=== PATIENT | male | born 1960 | race African-American/Black ===

== ENCOUNTER 2021-10-16 10:21 | Observation (INO) ==
[2021-10-16 10:44] LABS: Basophils % 0.4 % (0.0-0.8); Eosinophils # 0.2 10*3/uL (0.0-0.87); Eosinophils % 3.4 % (0.00-10.9); Hematocrit 38.8 VOL% (42.0-52.0); Hemoglobin 13.1 GM/DL (14.0-18.0); Immature Granulocytes % 0.4 %; Immature Granulocytes Absolute 0.02 #; Lymphocytes # 1.8 10*3/uL (1.4-4.0); Lymphocytes % 38.5 % (21.2-54.2); Mean Corpuscular HGB Conc 33.8 GM/DL (32-36); Mean Corpuscular Volume 85.8 FL (87-102); Mean Platelet Volume 9.9 FL (9.6-12.0); Monocytes # 0.3 10*3/uL (0.11-0.8); Monocytes % 6.9 % (1.7-12.7); Neutrophils % 50.4 % (38.7-73.9); Platelet Count 279 T/CUMM (130-400); Red Blood Count 4.52 MC/CUMM (3.8-5.5); Red Cell Distribution Width 12.4 % (9.3-17.3); White Blood Count 4.8 T/CUMM (4-12)
[2021-10-16] MEDS ORDERED: ALUM/MAG/SIMETH/LIDO VISC 1:1 30 ML BOTTLE PO STA (11:02)
[2021-10-16] MEDS ORDERED: ASPIRIN 325 MG TABLET PO STA (11:02)
[2021-10-16 11:18] LABS: Alanine Aminotransferase 15 U/L (16-61); Albumin 2.6 G/DL (3.4-5.0); Alkaline Phosphatase 104 U/L (45-117); Aspartate Amino Transferase 19 U/L (0-37); Bilirubin,Total < 0.39 MG/DL (0.20-1.00); Blood Urea Nitrogen 15 MG/DL (7-18); Calcium 8.8 MG/DL (8.5-10.1); Carbon Dioxide 29 MMOL/L (21-32); Chloride 100 MMOL/L (98-107); Glucose 383 MG/DL (74-106); Osmolality,Calculated 284.2 MOS/KG (273-304); Potassium 4.2 MMOL/L (3.5-5.1); Sodium 134 MMOL/L (136-145); Total Protein 6.7 G/DL (6.4-8.2)
[2021-10-16] MEDS ORDERED: METOPROLOL TARTRATE 5 MG/5 ML VIAL IV STA (12:40)
[2021-10-16] MEDS ORDERED: METOPROLOL TARTRATE 5 MG/5 ML VIAL IV ONE (12:41)
[2021-10-16] MEDS ORDERED: ONDANSETRON 4 MG/2 ML VIAL IV PRN (13:50)
[2021-10-16] MEDS ORDERED: DOCUSATE SODIUM 100 MG CAPSULE PO PRN (13:50)
[2021-10-16] MEDS ORDERED: ALUMINUM/MAGNES/SIMETH MAX STR 30 ML UDCUP PO PRN (13:50)
[2021-10-16] MEDS ORDERED: GLUCAGON 1 MG VIAL IM PRN ×2 (13:50)
[2021-10-16] MEDS ORDERED: ACETAMINOPHEN 325 MG TABLET PO PRN (13:50)
[2021-10-16] MEDS ORDERED: DEXTROSE 50% 25 GM/50 ML VIAL IV PRN (13:50)
[2021-10-16] MEDS ORDERED: DEXTROSE 10% 250 ML BAG IV PRN (13:50)
[2021-10-16] MEDS: FUROSEMIDE 40 MG/4 ML VIAL IV SCH (14:18)
[2021-10-16] MEDS: ENOXAPARIN 40 MG/0.4 ML SYRINGE SUBCUT SCH (14:21)
[2021-10-16 14:35] LABS: Thyroid Stimulating Hormone 2.15 uIU/ml (0.358-3.74)
[2021-10-16] MEDS: hydrALAZINE 20 MG/1 ML VIAL IV PRN (16:08)
[2021-10-16] MEDS: INSULIN LISPRO 100 UNIT/ML SUBCUT SCH ×2 (17:33→22:27)
[2021-10-16] MEDS ORDERED: LATANOPROST 0.005% OPH SOLN 2.5 ML BOTTLE BOTH EYES SCH (21:00)
[2021-10-16] MEDS ORDERED: BRIMONIDINE 0.2% OPH SOLN 5 ML BOTTLE BOTH EYES SCH (21:00)
[2021-10-17] MEDS: hydrALAZINE 20 MG/1 ML VIAL IV PRN (04:46)
[2021-10-17 05:35] LABS: Basophils % 0.3 % (0.0-0.8); Eosinophils # 0.2 10*3/uL (0.0-0.87); Eosinophils % 3.4 % (0.00-10.9); Hematocrit 36.6 VOL% (42.0-52.0); Hemoglobin 12.3 GM/DL (14.0-18.0); Immature Granulocytes % 0.5 %; Immature Granulocytes Absolute 0.03 #; Lymphocytes # 2.5 10*3/uL (1.4-4.0); Mean Corpuscular HGB Conc 33.6 GM/DL (32-36); Mean Corpuscular Volume 86.9 FL (87-102); Mean Platelet Volume 10.6 FL (9.6-12.0); Monocytes # 0.5 10*3/uL (0.11-0.8); Monocytes % 8.3 % (1.7-12.7); Neutrophils % 45.5 % (38.7-73.9); Platelet Count 274 T/CUMM (130-400); Red Blood Count 4.21 MC/CUMM (3.8-5.5); Red Cell Distribution Width 12.5 % (9.3-17.3); White Blood Count 5.9 T/CUMM (4-12)
[2021-10-17 05:51] LABS: Alanine Aminotransferase 15 U/L (16-61); Albumin 2.3 G/DL (3.4-5.0); Alkaline Phosphatase 84 U/L (45-117); Aspartate Amino Transferase 15 U/L (0-37); Bilirubin,Total < 0.39 MG/DL (0.20-1.00); Blood Urea Nitrogen 19 MG/DL (7-18); Calcium 8.7 MG/DL (8.5-10.1); Carbon Dioxide 26 MMOL/L (21-32); Chloride 106 MMOL/L (98-107); Cholesterol 175 MG/DL (50-200); Glucose 124 MG/DL (74-106); HDL Cholesterol 35 MG/DL (40-60); Osmolality,Calculated 279.5 MOS/KG (273-304); Potassium 3.5 MMOL/L (3.5-5.1); Sodium 139 MMOL/L (136-145); Total Protein 6.6 G/DL (6.4-8.2); Triglycerides 127 MG/DL (2-150); VLDL Cholesterol 25.4 MG/DL
[2021-10-17] MEDS: FUROSEMIDE 40 MG/4 ML VIAL IV SCH (08:39)
[2021-10-17] MEDS: INSULIN LISPRO 100 UNIT/ML SUBCUT SCH ×2 (08:44→12:30)
[2021-10-17] MEDS ORDERED: amLODIPine 10 MG TABLET PO SCH (09:00)
[2021-10-17] MEDS ORDERED: METOPROLOL SUCCINATE XL 50 MG TABLET PO SCH (09:00)
[2021-10-17] MEDS ORDERED: PANTOPRAZOLE 40 MG TABLET PO SCH (09:00)
[2021-10-17] MEDS: ENOXAPARIN 40 MG/0.4 ML SYRINGE SUBCUT SCH (16:14)
[2021-10-17 16:36] VITALS: BP 156/85
== END 2021-10-17 17:15 | disposition home or self-care (01) ==
LOC: N.ED 10:21 → N.EDINP 10:21 → N.TELES 21:36
PROVIDERS: ADMIT Internal Medicine; ATTEND Internal Medicine

== ENCOUNTER 2022-06-26 09:12 | Observation (INO) ==
[2022-06-26] MEDS ORDERED: NITROGLYCERIN 2% OINT 1 INCH/GM PACK TOP STA (09:31)
[2022-06-26] MEDS ORDERED: ASPIRIN 325 MG TABLET PO STA (09:31)
[2022-06-26] MEDS ORDERED: FUROSEMIDE 40 MG/4 ML VIAL IV STA (09:42)
[2022-06-26 09:48] LABS: Basophils % 0.6 % (0.0-0.8); Eosinophils # 0.2 10*3/uL (0.0-0.87); Eosinophils % 3.7 % (0.00-10.9); Hematocrit 35.3 VOL% (42.0-52.0); Hemoglobin 11.8 GM/DL (14.0-18.0); Immature Granulocytes % 0.8 %; Immature Granulocytes Absolute 0.05 #; Lymphocytes # 1.6 10*3/uL (1.4-4.0); Lymphocytes % 25.2 % (21.2-54.2); Mean Corpuscular HGB Conc 33.4 GM/DL (32-36); Mean Corpuscular Volume 87.4 FL (87-102); Mean Platelet Volume 9.5 FL (9.6-12.0); Monocytes # 0.4 10*3/uL (0.11-0.8); Monocytes % 6.1 % (1.7-12.7); Neutrophils % 63.6 % (38.7-73.9); Platelet Count 329 T/CUMM (130-400); Red Blood Count 4.04 MC/CUMM (3.8-5.5); White Blood Count 6.51 T/CUMM (4-12)
[2022-06-26 10:21] LABS: Alanine Aminotransferase 14 U/L (16-61); Albumin 2.4 G/DL (3.4-5.0); Alkaline Phosphatase 106 U/L (45-117); Aspartate Amino Transferase 17 U/L (0-37); Bilirubin,Total < 0.39 MG/DL (0.20-1.00); Blood Urea Nitrogen 14 MG/DL (7-18); Calcium 8.7 MG/DL (8.5-10.1); Carbon Dioxide 27 MMOL/L (21-32); Chloride 106 MMOL/L (98-107); Glucose 186 MG/DL (74-106); Osmolality,Calculated 282.5 MOS/KG (273-304); Potassium 3.7 MMOL/L (3.5-5.1); Sodium 139 MMOL/L (136-145); Total Protein 6.2 G/DL (6.4-8.2)
[2022-06-26] MEDS ORDERED: NICOTINE 21 MG/24 HR PATCH TRANSDERM PRN (11:52)
[2022-06-26] MEDS ORDERED: diphenhydrAMINE CAP 25 MG CAPSULE PO PRN (11:52)
[2022-06-26] MEDS ORDERED: ONDANSETRON 4 MG/2 ML VIAL IV PRN (11:52)
[2022-06-26] MEDS ORDERED: ALBUTEROL/IPRATROPIUM 3 ML NEB RESP TX PRN (11:52)
[2022-06-26] MEDS ORDERED: ACETAMINOPHEN 325 MG TABLET PO PRN (11:52)
[2022-06-26] MEDS ORDERED: guaiFENesin/DM ER 600-30 MG TABLET PO PRN (11:52)
[2022-06-26] MEDS ORDERED: NITROGLYCERIN SL 0.4 MG TABLET SL PRN (11:52)
[2022-06-26] MEDS ORDERED: MORPHINE 2 MG/1 ML SYRINGE IV PRN (11:52)
[2022-06-26] MEDS ORDERED: VALSARTAN 80 MG TABLET PO ONE (11:55)
[2022-06-26] MEDS: FUROSEMIDE 40 MG TABLET PO SCH (12:54)
[2022-06-26] MEDS: INSULIN LISPRO 100 UNIT/ML SUBCUT SCH ×2 (15:33→21:06)
[2022-06-26] MEDS: carvediloL 6.25 MG TABLET PO SCH (16:16)
[2022-06-26] MEDS: HEPARIN 5,000 UNIT/1 ML VIAL SUBCUT SCH (21:05)
[2022-06-26] MEDS: ATORVASTATIN 40 MG TABLET PO SCH (21:06)
[2022-06-26] MEDS: ZALEPLON 5 MG CAPSULE PO PRN (21:12)
[2022-06-27] MEDS: hydrALAZINE 20 MG/1 ML VIAL IV PRN ×2 (03:29→20:32)
[2022-06-27 05:04] LABS: Basophils # 0.1 10*3/uL (0.0-0.2); Basophils % 0.8 % (0.0-0.8); Eosinophils # 0.3 10*3/uL (0.0-0.87); Eosinophils % 4.5 % (0.00-10.9); Immature Granulocytes % 0.4 %; Immature Granulocytes Absolute 0.03 #; Lymphocytes # 2.3 10*3/uL (1.4-4.0); Lymphocytes % 32.9 % (21.2-54.2); Mean Corpuscular HGB Conc 33.3 GM/DL (32-36); Mean Corpuscular Volume 87.8 FL (87-102); Mean Platelet Volume 9.5 FL (9.6-12.0); Monocytes # 0.7 10*3/uL (0.11-0.8); Monocytes % 9.3 % (1.7-12.7); Neutrophils % 52.1 % (38.7-73.9); Platelet Count 322 T/CUMM (130-400); Red Blood Count 3.76 MC/CUMM (3.8-5.5); White Blood Count 7.11 T/CUMM (4-12)
[2022-06-27 05:21] LABS: Calcium 8.6 MG/DL (8.5-10.1); Osmolality,Calculated 281.5 MOS/KG (273-304); Potassium 3.4 MMOL/L (3.5-5.1); VLDL Cholesterol 19.6 MG/DL
[2022-06-27] MEDS: carvediloL 6.25 MG TABLET PO SCH ×2 (07:29→16:42)
[2022-06-27] MEDS: INSULIN LISPRO 100 UNIT/ML SUBCUT SCH ×4 (07:31→20:33)
[2022-06-27] MEDS: VALSARTAN 80 MG TABLET PO SCH (08:00)
[2022-06-27] MEDS: ASPIRIN EC 81 MG TABLET PO SCH (08:00)
[2022-06-27] MEDS: FUROSEMIDE 40 MG TABLET PO SCH (08:00)
[2022-06-27] MEDS: HEPARIN 5,000 UNIT/1 ML VIAL SUBCUT SCH ×2 (08:00→20:33)
[2022-06-27] MEDS: CLOPIDOGREL 75 MG TABLET PO SCH (08:00)
[2022-06-27] MEDS ORDERED: CLOPIDOGREL 75 MG TABLET PO SCH (09:00)
[2022-06-27] MEDS ORDERED: PANTOPRAZOLE 40 MG TABLET PO SCH (09:00)
[2022-06-27] MEDS ORDERED: ASPIRIN EC 81 MG TABLET PO SCH (09:00)
[2022-06-27] MEDS ORDERED: POTASSIUM CHLORIDE 20 MEQ TABLET PO ONE (10:00)
[2022-06-27] MEDS ORDERED: amLODIPine 5 MG TABLET PO SCH (14:00)
[2022-06-27] MEDS: ATORVASTATIN 40 MG TABLET PO SCH (20:29)
[2022-06-27] MEDS: ZALEPLON 5 MG CAPSULE PO PRN (20:30)
[2022-06-27] MEDS ORDERED: LATANOPROST 0.005% OPH SOLN 2.5 ML BOTTLE BOTH EYES SCH (21:00)
[2022-06-28 05:43] LABS: Basophils # 0.1 10*3/uL (0.0-0.2); Basophils % 0.8 % (0.0-0.8); Eosinophils # 0.3 10*3/uL (0.0-0.87); Eosinophils % 4.5 % (0.00-10.9); Hematocrit 36.1 VOL% (42.0-52.0); Hemoglobin 11.7 GM/DL (14.0-18.0); Immature Granulocytes % 0.4 %; Immature Granulocytes Absolute 0.03 #; Lymphocytes # 2.2 10*3/uL (1.4-4.0); Lymphocytes % 30.6 % (21.2-54.2); Mean Corpuscular HGB Conc 32.4 GM/DL (32-36); Mean Platelet Volume 9.5 FL (9.6-12.0); Monocytes # 0.7 10*3/uL (0.11-0.8); Monocytes % 9.2 % (1.7-12.7); Neutrophils % 54.5 % (38.7-73.9); Platelet Count 328 T/CUMM (130-400); Red Cell Distribution Width 13.1 % (9.3-17.3); White Blood Count 7.19 T/CUMM (4-12)
[2022-06-28] MEDS ORDERED: PANTOPRAZOLE 40 MG TABLET PO SCH (06:00)
[2022-06-28 06:09] LABS: Osmolality,Calculated 279.5 MOS/KG (273-304); Potassium 3.9 MMOL/L (3.5-5.1)
[2022-06-28] MEDS ORDERED: amLODIPine 10 MG TABLET PO SCH (09:00)
[2022-06-28] MEDS: ASPIRIN EC 81 MG TABLET PO SCH (09:13)
[2022-06-28] MEDS: VALSARTAN 80 MG TABLET PO SCH (09:14)
[2022-06-28] MEDS: carvediloL 6.25 MG TABLET PO SCH (09:14)
[2022-06-28] MEDS: HEPARIN 5,000 UNIT/1 ML VIAL SUBCUT SCH (09:15)
[2022-06-28] MEDS: FUROSEMIDE 40 MG TABLET PO SCH (09:15)
[2022-06-28] MEDS: INSULIN LISPRO 100 UNIT/ML SUBCUT SCH ×2 (09:22→11:38)
[2022-06-28] MEDS: CLOPIDOGREL 75 MG TABLET PO SCH (09:23)
[2022-06-28 12:53] VITALS: BP 153/71
== END 2022-06-28 14:45 | disposition home or self-care (01) ==
LOC: N.ED 09:12 → N.EDINP 09:12 → SUATTDRO 11:52 → N.3E 13:10
PROVIDERS: ADMIT Internal Medicine; ATTEND Internal Medicine